=== PATIENT | female | born 2000 | race Caucasian/White ===

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

== ENCOUNTER → 2020-01-01 | Outpatient (CLI) | payer BC ==
[~2020-01-01] MED LIST changes: +CLARITIN 1010 MG/TAB PO; +SPRINTEC 35 MCG1 TAB PO
== END ==
LOC: ZCOL.LAB 15:54
DX: R43.0 Anosmia (principal); Z20.828 Contact with and (suspected) exposure to other viral communicable diseases

== ENCOUNTER 2020-03-29 11:51 | Emergency (ER) | payer BC ==
[~2020-03-29] VITALS: Ht 170.2 cm; Wt 72.7 kg
[2020-03-29 12:01] VITALS: TEMP 100.3
[2020-03-29] MEDS ORDERED: ATARAX 25MG25 MG/TAB PO (12:20)
[2020-03-29] MEDS ORDERED: SINEQUAN 1010 MG/CAP PO (12:20)
[2020-03-29] MEDS ORDERED: ZYRTEC 10MG10 MG (12:21)
[2020-03-29 13:32] LABS: BASO % 0.1 % (0.0-2.0); EOS # 0.1 (0.0-0.7); EOS % 0.4 % (0-4.0); GRAN # 13.5 (1.4-6.5); GRAN % 83.5 % (42.2-75.2); HEMATOCRIT 37.9 % (35.0-45.0); HEMOGLOBIN 12.5 g/dl (12.0-15.0); LYMPH # 2.2 (1.2-3.4); LYMPH % 13.7 % (20.0-51.0); MEAN CELL VOLUME 90 fl (80.0-95.0); MEAN CORPUSCULAR HEMOGLOBIN 30 pg (26.0-32.0); MEAN CORPUSCULAR HGB CONC 33 g/dl (33.0-37.0); MEAN PLATELET VOLUME 9.2 fl (7.4-10.4); MONO # 0.3 (0.1-0.6); MONO % 1.8 % (1.7-9.3); PLATELET COUNT 437 K/mm3 (130-400); RED BLOOD COUNT 4.21 M/mm3 (4.10-5.30)
[2020-03-29 13:44] LABS: C-REACTIVE PROTEIN 6.3 mg/dL (0.0-0.9); CREATININE, serum 0.87 (0.52-1.25); POTASSIUM 4.2 mmol/L (3.4-5.0)
[2020-03-29] MEDS ORDERED: PREDNISONE20 MG PO (14:19)
[2020-03-29 14:54] LABS: COLLECTION METHOD CLEAN CATCH
[2020-03-29 15:06] LABS: MUCOUS Present /lpf; PH 6 (5-8); URINE APPEARANCE Hazy; URINE BACTERIA Many /hpf; URINE BILIRUBIN Negative (NEGATIVE); URINE BLOOD Negative (NEGATIVE); URINE COLOR Yellow; URINE GLUCOSE Negative (NEGATIVE); URINE KETONE Negative (NEGATIVE); URINE LEUKOCYTE ESTERASE 2+ (NEGATIVE); URINE NITRATE Positive (NEGATIVE); URINE PROTEIN(semi-quant) Negative (NEGATIVE); URINE RBC 0-2 /hpf; URINE UROBILINOGEN Negative (NEGATIVE)
[2020-03-29] MEDS ORDERED: MACROBID 1100 MG/CAP PO ×2 (15:08)
[2020-03-29] MEDS ORDERED: CIPRO 500MG TA500 MG PO (15:11)
[2020-03-29 17:44] VITALS: BP 100/65; PULSE 100
== END 2020-03-29 17:47 | disposition home or self-care (01) ==
LOC: COL.ER 11:51
PROVIDERS: Emergency Medicine
DX: L50.8 Other urticaria (principal); N39.0 Urinary tract infection, site not specified; D72.829 Elevated white blood cell count, unspecified; Z88.2 Allergy status to sulfonamides; Z88.1 Allergy status to other antibiotic agents
CPT/HCPCS: J0171; J1200; J2060; J7030; J7512

== ENCOUNTER 2020-09-03 02:23 | Emergency (ER) | payer BC ==
[~2020-09-03] VITALS: Ht 170.2 cm; Wt 75.0 kg
[~2020-09-03 02:23] MED LIST changes: +ATARAX 25MG25 MG/TAB PO; +CIPRO 500MG TA500 MG PO; +MACROBID 1100 MG/CAP PO; +PREDNISONE20 MG PO; +SINEQUAN 1010 MG/CAP PO
[2020-09-03 02:32] VITALS: TEMP 97.9
[2020-09-03 03:13] VITALS: BP 120/86; PULSE 100
== END 2020-09-03 03:13 | disposition home or self-care (01) ==
LOC: COL.ER 02:23
DX: H60.93 Unspecified otitis externa, bilateral (principal); Z88.1 Allergy status to other antibiotic agents; Z88.2 Allergy status to sulfonamides